=== PATIENT | female | born 1965 | race Caucasian/White ===

== ENCOUNTER 2019-03-04 08:10 | Outpatient (CLI) | payer OTHER ==
--- NOTE | 2019-03-04 09:24 | CT ---
CT orbits with contrast: 03/04/2019 HISTORY: 53-year-old female with right orbital mass, present for over 3 years. COMPARISON: None FINDINGS: At the right medial canthus, there is a soft tissue density structure measuring approximately 9 x 9 x 6 mm located slightly superior to, and questionably contiguous with, the right nasolacrimal duct and sac. There is a similar but smaller such density on the contralateral side. Otherwise, there is no other intraorbital mass. No dilation of superior ophthalmic vein. Globes are b ilaterally symmetrical and normal. Extraocular muscles are symmetrical and normal. No intraorbital gas or edema. Optic nerves are bilaterally symmetrical and normal in size. No mass compressing the op tic chiasm. Cavernous sinuses are normal. Minimal mucosal thickening at the floors of bilateral maxillary sinuses, but otherwise clear maxillary sinuses. Bilateral ethmoid air cells, frontal sinuse s, and sphenoid sinus, are clear. No destructive osseous lesion. IMPRESSION: Small soft tissue density structures at the medial canthus bilaterally, right larger than left, of un certain etiology.
[2019-03-04] MEDS ORDERED: ISOVUE-370 76%-LOCM 1 ML ONE (11:02)
== END 2019-03-04 08:11 | disposition home or self-care (01) ==
LOC: BICCT 08:10
DX: H05.89 Other disorders of orbit (principal)
CPT/HCPCS: 70481; Q9966